=== PATIENT | male | born 2000 | race Caucasian/White ===

== ENCOUNTER 2020-06-26 13:14 | Emergency (ER) | payer OTHER, SELFPAY ==
[2020-06-26 13:15] VITALS: BP 139/64; PULSE 70; RESP 14; TEMP 36.9; O2SAT 100; BMI 30.6
--- NOTE | 2020-06-26 13:20 | RAD_ITS ---
STUDY: X-RAY - LEFT ANKLE REASON FOR EXAM: Male, 20 years old. Pt states pain in left ankle, no known injury TECHNIQUE: 3 view(s) of the ankle. COMPARISON: None. FINDINGS: Normal visualized distal tibia and fibula. Normal medial and lateral malleoli. Normal tibiotalar articulation and ankle mortise. Normal visualized talus and calcaneus. The visualized subtalar, talonavicular, calcaneocuboid and tarsal articulations are normal. The soft tissue structures are unremarkable. RAD/Ankle min 3 Views IMPRESSION: Normal x-ray examination of the ankle. Electronically Signed: Nahum Scales, at 13:54 EDT , Service support ,
--- NOTE | 2020-06-26 15:01 | ED.DCSUM_ITS ---
- ER Visit Summary Date of Service: 06/26/20 Chief Complaint: Left ankle injury History of Present Illness: The patient is a 20 M who presents with left ankle pain that began yesterday. Patient states he was playing with his nephews in the yard. Patient states that he noted some pain in his ankle last night. Patient states it became worse today. Patient is unsure how he injured his ankle. Patient describes the pain is sharp. Patient states the pain is worse with certain movements. Patient denies any paresthesias or weakness. Patient denies any other injuries. Physical Examination: Vital signs are stable. Patient is afebrile. Patient is in no acute distress. Musculoskeletal exam reveals tenderness over the lateral aspect of the left ankle. There is no bony crepitance or step-off. There is no edema or ecchymosis. There is no tenderness over the proximal fibula. There is no tenderness over the fifth metatarsal. Pedal pulse was palpable. Capillary refill was less than 2 seconds in all digits. Sensation was intact to light touch in all digits. Range of motion was limited in all motions of the left ankle secondary to pain. Test Results: X-rays of the left ankle were obtained. There is no acute fracture or dislocation. These were interpreted by the radiologist and reviewed by myself. Emergency Department Course and Treatment: Patient was given an Aircast. Patient was instructed to ice and elevate the left ankle. Patient was instructed to follow-up with his primary care physician in 5 to 7 days. Patient was instructed to take Tylenol or ibuprofen as needed for pain. Patient und erstood and was agreeable with the plan. All questions were answered. Disposition: Discharge home Impression: 1. Acute sprain left ankle This note was generated with [employer] dictation software. It may contain incorrect words, spelling, and punctuation that were not noted in review of the chart prior to signing ED Disposition - Plan for ED Patient: Disposition: Home or Assisted Living Diagnosis: Left ankle sprain Instructions: ED Sprain Ankle Referrals: NOT,DEFINED [Primary Care Provider] - 5-7 Days
== END 2020-06-26 15:38 | disposition home or self-care (01) ==
LOC: ED 15:28
PROVIDERS: Emergency Provider Emergency Medicine
DX: S93.402A Sprain of unspecified ligament of left ankle, initial encounter (principal); X58.XXXA Exposure to other specified factors, initial encounter; Y93.9 Activity, unspecified; Y92.9 Unspecified place or not applicable
CPT/HCPCS: 73610; 99283